=== PATIENT | female | born 1970 | race Caucasian/White ===

== ENCOUNTER → 2017-01-09 | Day surgery (SDC) | payer OTHER ==
[~2017-01-09] MED LIST: B COMPLEX1 CA1 PO; FISH OIL 1,2001 EAC3 PO; IBUPROFEN800 MG PO; MAGNESIUM/PROTEIN PO; XARELTO20 MG PO; ZOVIRAX400 MG PO
--- NOTE | ~2017-01-09 | OR ---
Unit #: [id number] #: [id number] Patient: JAY MORALES [id number] [address] [place], [place] [address] [id number] O MR#: [id number] NAME: JAY MORALES ROOM: Date of Procedure: 01/09/2017 Admission Date: 01/09/2017 Surgeon: Papito Boyd M.D. : 1970 Attending Physician: Papito Boyd M.D. Referring Physician: Papito Boyd M.D. OPERATIVE REPORT JOB NOTE: CC: DR. RO PAZ PREOPERATIVE DIAGNOSIS Painful enlarging skin and subcutaneous mass, right chest. POSTOPERATIVE DIAGNOSIS Painful enlarging skin and subcutaneous mass, right chest. PROCEDURE PERFORMED Excision of painful enlarging skin and subcutaneous mass, right chest 3 x 2 cm with layered closure. ANESTHESIA General LMA anesthesia with 0.5% Marcaine plain local anesthesia. FINDINGS The area was excised with what appeared to be grossly negative margins, full thickness and was sent to pathology. SPECIMENS Sent to pathology. COMPLICATIONS None apparent. CONDITION The patient tolerated the procedure well. INDICATIONS FOR PROCEDURE The patient is a 46-year-old white female, who has a history of leukemia and lymphoma. She is currently in remission. She has had her port removed. She presents at this time with enlarging painful skin and subcutaneous nodule 2 to 3 inches below where her port was located. She presents at this time for excision for pathologic diagnosis and treatment. DESCRIPTION OF PROCEDURE After obtaining informed consent as well as receiving preoperative antibiotics, the patient was brought to the operating room and after adequate general LMA anesthesia was obtained, had her right chest prepped and draped in a sterile fashion. An elliptical incision was made in the direction of the lines of skin tension around the area with what appeared to be grossly negative margins circumferentially. This was excised Unit #: [id number] #: [id number] Patient: JAY MORALES circumferentially with electrocautery with good hemostasis. There was a blood vessel in the base of the wound that was controlled with 3-0 Vicryl suture ligatures. The wound was irrigated and hemostasis was obtained with Bovie, infiltrated with 0.5% Marcaine plain local anesthesia. The subcutaneous tissues were reapproximated with interrupted 3-0 Vicryl suture and the skin was closed with interrupted 4-0 nylon vertical mattress sutures. Telfa dressing was placed followed by a Tegaderm dressing. Needle counts, sponge counts, and instrument counts were all correct as reported by the scrub nurse x2. The patient went from the operating room to the recovery room in stable condition. Dictated by... Fuentes Anderson/joshua TD: 01/10/2017 02:15 JOB #: [id number] CC: [facility] OPERATIVE REPORT Page 1 of 1 X Papito Boyd MD X PROCEDURE OPERATIVE NOTE
[2017-01-09 08:26] LABS: BASOPHIL% 0.7 % (0-2.5); DIFF IND YES; EOSINOPHIL# 0.3 X10e3 (0-0.7); EOSINOPHIL% 6.5 % (0.0-7.0); LYMPHOCYTE# 1.7 X10e3 (1.0-3.5); LYMPHOCYTE% 42.1 % (17.0-45.0); MEAN CELL VOLUME 100.6 FL (83-96); MEAN CORPUSCULAR HEMOGLOBIN 33.6 PG (28-34); MEAN CORPUSCULAR HGB CONC 33.4 g/dL (30-36); MEAN PLATELET VOLUME 8.3 FL (6.5-11.5); MONOCYTE% 25.2 % (3.0-12.0); NEUTROPHIL% 25.5 % (40-75); PLATELET COUNT 151 X10e3 (140-420); RED BLOOD COUNT 3.88 X10e (3.90-5.30); RED CELL DISTRIBUTION WIDTH 13.6 % (11.0-15.5)
[2017-01-09 08:39] LABS: PLATELET ESTIMATE NORMAL (NORMAL); RBC NORMAL YES
[2017-01-09 08:59] LABS: BLOOD UREA NITROGEN 12 mg/dL (9-23); CALCIUM SERUM 9.3 mg/dL (8.4-10.2); CARBON DIOXIDE 27 mmol/L (22-31); CHLORIDE 102 mmol/L (100-111); CREATININE SERUM 0.8 mg/dL (0.6-1.4); GLOM FILT RATE Estimated ABOVE60 mL/min (>60); GLUCOSE FASTING 91 mg/dL (70-110); POTASSIUM 4.5 mmol/L (3.5-5.1); SODIUM 137 mmol/L (135-145)
== END | disposition home or self-care (01) ==
LOC: CSUR 07:23
PROVIDERS: Surgery
DX: L72.0 Epidermal cyst (principal); C95.91 Leukemia, unspecified, in remission; D64.9 Anemia, unspecified; N18.9 Chronic kidney disease, unspecified; F17.210 Nicotine dependence, cigarettes, uncomplicated; Z85.72 Personal history of non-Hodgkin lymphomas; Z87.440 Personal history of urinary (tract) infections; Z79.899 Other long term (current) drug therapy; Z98.890 Other specified postprocedural states
CPT/HCPCS: 80048; 84703; 85025; 88304; J0690; J1644; J2250; J2765; J3010